=== PATIENT | female | born 1995 | race Caucasian/White ===

== ENCOUNTER 2022-03-13 23:13 | Inpatient (IN) | payer MEDICARE ==
[~2022-03-13] VITALS: Ht 157.5 cm; Wt 80.4 kg
[2022-03-14 03:58] LABS: BASOPHILS % 0.5 % (0.0-2.0); EOSINOPHILS % 0.3 % (0.0-5.0); HEMATOCRIT. 38.1 % (36.0-48.0); HEMOGLOBIN. 12.8 g/dL (12.0-16.0); MEAN CORPUSCULAR VOLUME 89.3 fL (81.0-99.0); MEAN PLATELET VOLUME 8.2 fl (7.4-10.4); MONOCYTES % 7.6 % (2.0-8.0); NEUTROPHILS % 67.6 % (40.0-76.0); PLATELET 349 x1000/uL (130-400); RED BLOOD CELL COUNT 4.27 mill/uL (4.2-5.4); RED CELL DISTRIBUTION WIDTH 13.7 % (11.6-14.6)
[2022-03-14 04:10] LABS: CHLORIDE 102 mEq/L (98-107)
[2022-03-14 04:17] LABS: ETHANOL BLOOD < 10 mg/dL
[2022-03-14] MEDS ORDERED: PIPERACILLIN/TAZ 3.375G PREMIX 50 ML IV NR (05:15)
[2022-03-14] MEDS ORDERED: PIPERACILLIN/TAZOBACTAM 3.375GM/50ML PREMIX IV ONE (05:15)
[2022-03-14] MEDS ORDERED: MORPHINE SULFATE 4 MG/ML CPJ (NOT FOR IM USE) IV NR (05:15)
[2022-03-14] MEDS ORDERED: ONDANSETRON HCL 4MG/2ML INJ IV PRN (07:30)
[2022-03-14] MEDS ORDERED: CLONIDINE 0.1MG TABLET PO PRN (07:30)
[2022-03-14] MEDS ORDERED: IPRATROPIUM/ALBUTEROL 0.5-3(2.5)MG/3ML NEB NEB PRN (07:30)
[2022-03-14] MEDS ORDERED: MAGNESIUM/ALUMINUM HYDROXIDE/SIMETHICONE 30ML UDC PO PRN (07:30)
[2022-03-14] MEDS ORDERED: GUAIFENESIN 200MG/10ML SUGAR FREE UDC PO PRN (07:30)
[2022-03-14] MEDS ORDERED: KETOROLAC 15MG/ML VIAL IV PRN (07:30)
[2022-03-14] MEDS ORDERED: ACETAMINOPHEN 325MG TABLET PO PRN ×2 (07:30)
[2022-03-14] MEDS ORDERED: DOCUSATE SODIUM 100MG CAPSULE PO PRN (07:30)
[2022-03-14] MEDS ORDERED: NA PHOS,M-B/NA PHOS,DI-BA ENEMA 118ML PR PRN (07:30)
[2022-03-14] MEDS ORDERED: MORPHINE SULFATE 2 MG/ML CPJ (NOT FOR IM USE) IV PRN (07:30)
[2022-03-14] MEDS ORDERED: TRAMADOL 50MG TABLET PO PRN (07:30)
[2022-03-14] MEDS ORDERED: NALOXONE HCL 0.4MG/ML VIAL IV PRN (07:45)
[2022-03-14] MEDS: DEXT 5%/LACTATED RINGERS 1,000 ML IV SCH ×2 (07:57→20:24)
[2022-03-14 08:28] LABS: TOTAL IRON BINDING CAPACITY 348 ug/dL (250-450)
[2022-03-14 08:50] LABS: VITAMIN B12 SERUM 989 pg/mL (211-911)
[2022-03-14 08:56] LABS: FOLIC ACID (FOLATE) SERUM > 20.00 ng/mL (>5.38)
[2022-03-14] MEDS: PANTOPRAZOLE SODIUM 40 MG/VIAL IV SCH (09:00)
[2022-03-14] MEDS: ENOXAPARIN 40MG/0.4ML SYR SUBCUT SCH (09:00)
[2022-03-14 09:44] LABS: HCG SCREEN NEGATIVE
[2022-03-14 11:00] VITALS: BP 118/77
[2022-03-14 12:00] VITALS: BP 128/88
[2022-03-14] MEDS ORDERED: PIPERACILLIN/TAZ 3.375G PREMIX 50 ML IV SCH (14:00)
[2022-03-14 16:00] VITALS: BP 128/74
[2022-03-14] MEDS: PIPERACILLIN/TAZOBACTAM 3.375G in DEXT 5% WATER 50ML IV SCH ×2 (17:34→23:34)
[2022-03-14 20:00] VITALS: BP 119/70
[2022-03-14] MEDS ORDERED: ZOLPIDEM TARTRATE 5MG TABLET PO PRN (21:00)
[2022-03-15] VITALS: BP 111/64
[2022-03-15 04:00] VITALS: BP_SYST 112; BP_SYST 132; BP_DIAS 58; BP_DIAS 74
[2022-03-15] MEDS: PIPERACILLIN/TAZOBACTAM 3.375G in DEXT 5% WATER 50ML IV SCH ×3 (05:32→22:23)
[2022-03-15 07:59] LABS: BASOPHILS % 0.6 % (0.0-2.0); EOSINOPHILS % 1.6 % (0.0-5.0); HEMATOCRIT. 39.5 % (36.0-48.0); HEMOGLOBIN. 13.1 g/dL (12.0-16.0); LYMPHOCYTES % 37.2 % (20.0-50.0); MEAN CORPUSCULAR HEMOGLOBIN 29.9 pg (28.0-32.0); MEAN CORPUSCULAR VOLUME 89.8 fL (81.0-99.0); MEAN PLATELET VOLUME 8.9 fl (7.4-10.4); MONOCYTES % 11.5 % (2.0-8.0); NEUTROPHILS % 49.1 % (40.0-76.0); PLATELET 328 x1000/uL (130-400); RED CELL DISTRIBUTION WIDTH 13.5 % (11.6-14.6)
[2022-03-15 08:00] VITALS: BP 145/76
[2022-03-15 08:08] LABS: CHLORIDE 105 mEq/L (98-107)
[2022-03-15 08:15] LABS: PHOSPHORUS 3.5 mg/dL (2.5-4.9)
[2022-03-15] MEDS: PANTOPRAZOLE SODIUM 40 MG/VIAL IV SCH (09:10)
[2022-03-15] MEDS: ENOXAPARIN 40MG/0.4ML SYR SUBCUT SCH (09:11)
[2022-03-15] MEDS: DEXT 5%/LACTATED RINGERS 1,000 ML IV SCH ×2 (10:25→23:45)
[2022-03-15 12:00] VITALS: BP 130/81
[2022-03-15 16:00] VITALS: BP 128/72
[2022-03-15 20:00] VITALS: BP 112/78
[2022-03-16] MEDS: PIPERACILLIN/TAZOBACTAM 3.375G in DEXT 5% WATER 50ML IV SCH (05:19)
[2022-03-16 05:59] LABS: CHLORIDE 102 mEq/L (98-107)
[2022-03-16 06:10] LABS: BASOPHILS % 0.5 % (0.0-2.0); EOSINOPHILS % 2.3 % (0.0-5.0); HEMATOCRIT. 36.9 % (36.0-48.0); HEMOGLOBIN. 12.5 g/dL (12.0-16.0); LYMPHOCYTES % 33.1 % (20.0-50.0); MEAN CORPUSCULAR HEMOGLOBIN 30.2 pg (28.0-32.0); MEAN CORPUSCULAR VOLUME 89.1 fL (81.0-99.0); MEAN PLATELET VOLUME 8.7 fl (7.4-10.4); MONOCYTES % 9.8 % (2.0-8.0); NEUTROPHILS % 54.3 % (40.0-76.0); PLATELET 281 x1000/uL (130-400); RED BLOOD CELL COUNT 4.14 mill/uL (4.2-5.4); RED CELL DISTRIBUTION WIDTH 13.6 % (11.6-14.6)
[2022-03-16 08:00] VITALS: BP 111/71
[2022-03-16] MEDS: ENOXAPARIN 40MG/0.4ML SYR SUBCUT SCH (09:13)
[2022-03-16] MEDS: PANTOPRAZOLE SODIUM 40 MG/VIAL IV SCH (09:13)
[2022-03-16 12:00] VITALS: BP 107/72
[2022-03-16 13:21] VITALS: BP 107/72
== END 2022-03-16 15:15 | disposition home or self-care (01) ==
LOC: ER 23:13 → 6EST 03-14 05:08 → ENRESERV 03-14 09:41 → 6EST 03-14 10:53
PROVIDERS: ADMIT Internal Medicine; ATTEND Internal Medicine
DX: K80.60 Calculus of gallbladder and bile duct with cholecystitis, unspecified, without obstruction (principal); K76.0 Fatty (change of) liver, not elsewhere classified; E66.9 Obesity, unspecified; Z20.822 Contact with and (suspected) exposure to COVID-19; R74.01 Elevation of levels of liver transaminase levels; M54.9 Dorsalgia, unspecified; Z83.3 Family history of diabetes mellitus; Z68.32 Body mass index [BMI] 32.0-32.9, adult
CPT/HCPCS: 36415; 74181; 76700; 80053; 80076; 80320; 82607; 82746; 83540; 83550; 83735; 84100; 84703; 85025; 87426; 93970; 99285; C9113; C9803; J1650; J1885; J2270; J2543; J7060; G0480

== ENCOUNTER 2022-10-04 21:41 | Emergency (ER) | payer MEDICARE ==
[~2022-10-04] VITALS: Ht 160 cm; Wt 72.0 kg
[2022-10-04] MEDS ORDERED: MORPHINE SULFATE 4 MG/ML CPJ (NOT FOR IM USE) IV STA (23:47)
[2022-10-04] MEDS ORDERED: ONDANSETRON HCL 4MG/2ML INJ IV STA (23:47)
[2022-10-05] MEDS ORDERED: SODIUM CHLORIDE 0.9% 1,000 ML IV ONE
[2022-10-05 00:30] LABS: BASOPHILS % 0.1 % (0.0-2.0); EOSINOPHILS % 0.1 % (0.0-5.0); HEMATOCRIT. 37.8 % (36.0-48.0); HEMOGLOBIN. 12.8 g/dL (12.0-16.0); LYMPHOCYTES % 8.5 % (20.0-50.0); MEAN CORPUSCULAR HEMOGLOBIN 30.2 pg (28.0-32.0); MEAN CORPUSCULAR VOLUME 89.1 fL (81.0-99.0); MEAN PLATELET VOLUME 8.2 fl (7.4-10.4); MONOCYTES % 4.1 % (2.0-8.0); NEUTROPHILS % 87.2 % (40.0-76.0); PLATELET 371 x1000/uL (130-400); RED BLOOD CELL COUNT 4.25 mill/uL (4.2-5.4)
[2022-10-05 00:32] LABS: CHLORIDE 103 mEq/L (98-107)
[2022-10-05 01:11] LABS: CLARITY URINE TURBID (CLEAR); COLOR URINE YELLOW (YELLOW); KETONES URINE NEGATIVE (NEGATIVE); LEUKOCYTE ESTERASE URINE NEGATIVE (NEGATIVE); NITRITE URINE NEGATIVE (NEGATIVE); OCCULT BLOOD URINE NEGATIVE (NEGATIVE); PH URINE 7.5 (4.5-8.0); PROTEIN URINE TRACE (NEGATIVE); SPECIFIC GRAVITY URINE 1.027 (1.005-1.030)
[2022-10-05 01:13] LABS: HCG SCREEN NEGATIVE
[2022-10-05 13:25] VITALS: BP 107/62
== END 2022-10-05 13:35 | disposition short-term general hospital (02) ==
LOC: ER 21:51 → CANBEDREQ 10-05 16:37
DX: K80.50 Calculus of bile duct without cholangitis or cholecystitis without obstruction (principal); K76.0 Fatty (change of) liver, not elsewhere classified; Z20.822 Contact with and (suspected) exposure to COVID-19
CPT/HCPCS: 36415; 71045; 74176; 76705; 80053; 81003; 81025; 83690; 84703; 85025; 87086; 87426; 93005; 96361; 96374; 96375; 99285; C9803; J2270; J2405; Z7610